=== PATIENT | female | born 1945 | race Caucasian/White ===

== ENCOUNTER 2016-06-26 09:34 | Outpatient (CLI) | payer MEDICARE, BC ==
[2016-06-26 10:09] LABS: INR-International Normal Ratio 1.6; Prothrombin Time 19.4 SEC (12.0-14.7)
== END 2016-06-26 09:35 | disposition home or self-care (01) ==
LOC: MADLAB 09:34
PROVIDERS: ATTEND Internal Medicine Nephrology
DX: E78.5 Hyperlipidemia, unspecified (principal)
CPT/HCPCS: 36415; 85610; 85730

== ENCOUNTER 2016-07-05 09:24 | Outpatient (CLI) | payer MEDICARE, BC ==
[2016-07-05 09:56] LABS: PTT 41.4 SEC (22.9-36.1); Prothrombin Time 40.4 SEC (12.0-14.7)
[2016-07-05 10:14] LABS: INR-International Normal Ratio 4.3
== END 2016-07-05 09:25 | disposition home or self-care (01) ==
LOC: MADLAB 09:24
PROVIDERS: ATTEND Internal Medicine Nephrology
DX: E78.5 Hyperlipidemia, unspecified (principal)
CPT/HCPCS: 36415; 85610; 85730

== ENCOUNTER 2016-07-18 11:23 | Outpatient (CLI) | payer MEDICARE, BC ==
[2016-07-18 12:02] LABS: PTT 38.8 SEC (22.9-36.1)
[2016-07-18 12:03] LABS: INR-International Normal Ratio 3.3
== END 2016-07-18 11:24 | disposition home or self-care (01) ==
LOC: MADLAB 11:23
PROVIDERS: ATTEND Internal Medicine Nephrology
DX: E78.5 Hyperlipidemia, unspecified (principal)
CPT/HCPCS: 36415; 85610; 85730

== ENCOUNTER 2016-10-10 09:14 | Outpatient (CLI) | payer MEDICARE, BC ==
[2016-10-10 09:51] LABS: INR-International Normal Ratio 3.1; PTT 34.2 SEC (22.9-36.1); Prothrombin Time 31.7 SEC (12.0-14.7)
== END 2016-10-10 09:15 | disposition home or self-care (01) ==
LOC: MADLAB 09:14
PROVIDERS: ATTEND Internal Medicine Nephrology
DX: E78.5 Hyperlipidemia, unspecified (principal)
CPT/HCPCS: 36415; 85610; 85730

== ENCOUNTER 2016-11-09 14:13 | Outpatient (CLI) | payer MEDICARE, BC ==
[2016-11-09 14:35] LABS: INR-International Normal Ratio 3.8; PTT 37.7 SEC (22.9-36.1); Prothrombin Time 37.1 SEC (12.0-14.7)
== END 2016-11-09 14:14 | disposition home or self-care (01) ==
LOC: MADLAB 14:13
PROVIDERS: ATTEND Internal Medicine Nephrology
DX: E78.5 Hyperlipidemia, unspecified (principal)
CPT/HCPCS: 36415; 85610; 85730

== ENCOUNTER 2016-11-27 11:33 | Outpatient (CLI) | payer MEDICARE, BC ==
[2016-11-27 11:59] LABS: INR-International Normal Ratio 1.9; PTT 27.4 SEC (22.9-36.1); Prothrombin Time 21.9 SEC (12.0-14.7)
== END 2016-11-27 11:34 | disposition home or self-care (01) ==
LOC: MADLAB 11:33
PROVIDERS: ATTEND Internal Medicine Nephrology
DX: E78.5 Hyperlipidemia, unspecified (principal)
CPT/HCPCS: 36415; 85610; 85730

== ENCOUNTER 2016-12-18 07:06 | Outpatient (CLI) | payer MEDICARE, BC ==
[2016-12-18 07:50] LABS: Prothrombin Time 22.9 SEC (12.0-14.7)
== END 2016-12-18 07:07 | disposition home or self-care (01) ==
LOC: MADLAB 07:06
PROVIDERS: ATTEND Internal Medicine Nephrology
DX: E78.5 Hyperlipidemia, unspecified (principal)
CPT/HCPCS: 36415; 85610; 85730

== ENCOUNTER 2017-01-03 07:58 | Outpatient (CLI) | payer MEDICARE, BC ==
[2017-01-03 08:46] LABS: INR-International Normal Ratio 2.1; PTT 33.2 SEC (22.9-36.1); Prothrombin Time 23.9 SEC (12.0-14.7)
== END 2017-01-03 07:59 | disposition home or self-care (01) ==
LOC: MADLAB 07:58
PROVIDERS: ATTEND Internal Medicine Nephrology
DX: E78.5 Hyperlipidemia, unspecified (principal)
CPT/HCPCS: 36415; 85610; 85730

== ENCOUNTER 2017-01-30 08:15 | Outpatient (CLI) | payer MEDICARE, BC ==
[2017-01-30 17:29] LABS: Prothrombin Time 23.5 SEC (12.0-14.7)
== END 2017-01-30 08:16 | disposition home or self-care (01) ==
LOC: MADLAB 08:15
PROVIDERS: ATTEND Internal Medicine Nephrology
DX: E78.5 Hyperlipidemia, unspecified (principal)
CPT/HCPCS: 36415; 85610; 85730

== ENCOUNTER 2017-02-14 07:20 | Outpatient (CLI) | payer MEDICARE, BC ==
[2017-02-14 08:06] LABS: ALT (SGPT) 11 U/L (8-55); AST (SGOT) 13 U/L (5-34); Albumin 3.5 g/dL (3.4-4.8); Alkaline Phosphatase 53 U/L (40-150); Anion Gap 13 mmol/L (10-20); BUN (Urea Nitrogen) 12 mg/dL (9.8-20.1); Bilirubin, Total 0.4 mg/dL (0.2-1.2); Calc. Creatinine Clearance 0 mL/min (70-130); Calcium 9.2 mg/dL (7.8-10.44); Carbon Dioxide 28 mmol/L (23-31); Cardiac Risk 4.2 (Less than 4.5); Chloride 103 mmol/L (98-107); Cholesterol 214 mg/dl (< 200 Desired); Estimated GFR-MDRD 76; Globulin 2.6 g/dL (2.4-3.5); Glucose 86 mg/dL (80-115); HDL Cholesterol 51 mg/dL (>60 Neg Risk); LDL Cholesterol, Calculated 148 mg/dL; Potassium 4.3 mmol/L (3.5-5.1); Protein, Total 6.1 g/dL (6.0-8.3); Sodium 140 mmol/L (136-145); Triglycerides 77 mg/dL (Less than 150)
[2017-02-14 08:49] LABS: INR-International Normal Ratio 2.2; PTT 30.9 SEC (22.9-36.1); Prothrombin Time 25.3 SEC (12.0-14.7)
[2017-02-14 12:25] LABS: #Basophils 0.1 thou/uL (0.0-0.2); #Eosinphils 0.1 thou/uL (0.0-0.7); #Lymphocytes 2.9 thou/uL (1.20-3.40); #Monocytes 0.8 thou/uL (0.11-0.59); #Neutrophils 8.1 thou/uL (1.40-6.50); %Basophils 1.1 % (0.0-1.0); %Monocytes 6.6 % (0.0-10.0); %Neutrophils 67.3 % (42.0-75.0); Hemoglobin 14.1 g/dL (12.0-16.0); Mean Corpuscular HGB CONC 31.8 g/dL (32.0-36.0); Mean Corpuscular Hemoglobin 29.8 pg (27.0-31.0); Mean Corpuscular Volume 93.8 fl (81.0-99.0); Mean Platelet Volume 6.5 fL (7.4-10.4); Platelet Count 286 thou/uL (130-400); Red Blood Cell (RBC) Count 4.71 mill/uL (4.20-5.40); White Blood Cell (WBC) Count 12.1 thou/uL (4.8-10.8)
== END 2017-02-14 07:21 | disposition home or self-care (01) ==
LOC: MADLAB 07:20
PROVIDERS: ATTEND Internal Medicine Nephrology
DX: E78.5 Hyperlipidemia, unspecified (principal); I10 Essential (primary) hypertension
CPT/HCPCS: 36415; 80053; 80061; 85025; 85610; 85730

== ENCOUNTER 2017-04-04 12:33 | Outpatient (CLI) | payer MEDICARE, BC ==
[2017-04-04 13:04] LABS: INR-International Normal Ratio 2.3; PTT 30.9 SEC (22.9-36.1); Prothrombin Time 26.2 SEC (12.0-14.7)
[2017-04-04 13:11] LABS: Anion Gap 11 mmol/L (10-20); BUN (Urea Nitrogen) 13 mg/dL (9.8-20.1); Calc. Creatinine Clearance 0 mL/min (70-130); Calcium 9.1 mg/dL (7.8-10.44); Carbon Dioxide 31 mmol/L (23-31); Chloride 103 mmol/L (98-107); Estimated GFR-MDRD 72; Glucose 87 mg/dL (80-115); Sodium 141 mmol/L (136-145)
== END 2017-04-04 12:34 | disposition home or self-care (01) ==
LOC: MADLAB 12:33
PROVIDERS: ATTEND Internal Medicine Nephrology
DX: I10 Essential (primary) hypertension (principal)
CPT/HCPCS: 36415; 80048; 85610; 85730

== ENCOUNTER 2017-08-10 07:29 | Outpatient (CLI) | payer MEDICARE, BC ==
[2017-08-10 08:44] LABS: Bilirubin Negative (Negative); Blood, Urine Small (Negative); Clarity Clear (Clear); Glucose, Urine (Dipstick) Negative (Negative); Leukocyte Negative (Negative); Nitrite Negative (Negative); Protein, Urine (Dipstick) Negative (Neg-Trace); Specific Gravity, Urine 1.015 (1.005-1.030); Urobilinogen 0.2 mg/dL (0.2-1.0); pH, Urine 6.5 (5.0-9.0)
[2017-08-10 08:52] LABS: #Basophils 0.1 thou/uL (0.0-0.2); #Eosinphils 0.1 thou/uL (0.0-0.7); #Lymphocytes 2.2 thou/uL (1.20-3.40); #Monocytes 0.8 thou/uL (0.11-0.59); #Neutrophils 8.5 thou/uL (1.40-6.50); %Basophils 0.9 % (0.0-1.0); %Lymphocytes 18.5 % (21.0-51.0); %Monocytes 6.6 % (0.0-10.0); Hemoglobin 14.5 g/dL (12.0-16.0); Mean Corpuscular HGB CONC 32.5 g/dL (32.0-36.0); Mean Corpuscular Hemoglobin 30.8 pg (27.0-31.0); Mean Corpuscular Volume 94.7 fl (81.0-99.0); Mean Platelet Volume 6.7 fL (7.4-10.4); Platelet Count 285 thou/uL (130-400); RBC Distribution Width 13.3 % (11.5-14.5); Red Blood Cell (RBC) Count 4.72 mill/uL (4.20-5.40); White Blood Cell (WBC) Count 11.7 thou/uL (4.8-10.8)
[2017-08-10 08:56] LABS: INR-International Normal Ratio 1.6; Prothrombin Time 19.2 SEC (12.0-14.7)
[2017-08-10 08:58] LABS: PTT 27.6 SEC (22.9-36.1)
[2017-08-10 09:06] LABS: ALT (SGPT) 9 U/L (8-55); AST (SGOT) 11 U/L (5-34); Albumin 3.9 g/dL (3.4-4.8); Alkaline Phosphatase 58 U/L (40-150); Anion Gap 16 mmol/L (10-20); BUN (Urea Nitrogen) 16 mg/dL (9.8-20.1); Bilirubin, Total 0.4 mg/dL (0.2-1.2); Calc. Creatinine Clearance 0 mL/min (70-130); Calcium 9.7 mg/dL (7.8-10.44); Carbon Dioxide 27 mmol/L (23-31); Chloride 102 mmol/L (98-107); Cholesterol 235 mg/dl (< 200 Desired); Estimated GFR-MDRD 70; Globulin 2.7 g/dL (2.4-3.5); Glucose 78 mg/dL (83-110); HDL Cholesterol 47 mg/dL (>60 Neg Risk); LDL Cholesterol, Calculated 162 mg/dL; Potassium 4.2 mmol/L (3.5-5.1); Protein, Total 6.6 g/dL (6.0-8.3); Sodium 141 mmol/L (136-145); Triglycerides 128 mg/dL (Less than 150)
== END 2017-08-10 07:30 | disposition home or self-care (01) ==
LOC: MADLAB 07:29
PROVIDERS: ATTEND Internal Medicine Nephrology
DX: E78.5 Hyperlipidemia, unspecified (principal); J44.9 Chronic obstructive pulmonary disease, unspecified; I10 Essential (primary) hypertension
CPT/HCPCS: 36415; 80053; 80061; 81003; 85025; 85610; 85730

== ENCOUNTER 2018-02-28 10:33 | Outpatient (CLI) | payer MEDICARE, BC ==
[2018-02-28 10:56] LABS: INR-International Normal Ratio 1.5; PTT 26.9 SEC (22.9-36.1); Prothrombin Time 18.4 SEC (12.0-14.7)
== END 2018-02-28 10:34 | disposition home or self-care (01) ==
LOC: MADLAB 10:33
PROVIDERS: ATTEND Internal Medicine Nephrology
DX: E78.5 Hyperlipidemia, unspecified (principal); I10 Essential (primary) hypertension; I82.409 Acute embolism and thrombosis of unspecified deep veins of unspecified lower extremity; J44.9 Chronic obstructive pulmonary disease, unspecified
CPT/HCPCS: 36415; 85610; 85730